=== PATIENT | female | born 1975 | race African-American/Black ===

== ENCOUNTER → 2016-06-24 | Outpatient (CLI) | payer BC ==
[~2016-06-24] MED LIST: ALBUTEROL17 G1 IH; ALBUTEROL17 GM INH; BACTRIM DS TABL1 TA1 PO; KEFLEX500 MG PO; ORUDIS75 M1 PO; PEPCID PO; PREDNISONE1 MG PO; PREDNISONE10 MG PO
--- NOTE | ~2016-06-24 | MY11 ---
[facility] A Service of [facility] RADIOLOGY TEXT RESULTS PATIENT: KONSTANTIN ARREDONDO LOCATION: [facility] : 71 UNIT #: [id number] AGE: [address]: Modesta Scherer SEX: F ORDER DR: [id number] [facility] [address] [place], [place] [address] [id number] O MR#: [id number] Acc #: [id number] NAME: KONSTANTIN ARREDONDO : 1975 SEX: F STUDY DATE/TIME: 06/24/2016 12:01 UNIT: [facility] ROOM: STUDY DESCRIPTION: MY Mammogram Screening Dig Harinder Attending Physician: Modesta Scherer P.A.-C. Ordering Physician: Physician Non-Staff Primary Care Physician: Modesta Scherer P.A.-C. MEDICAL IMAGING REPORT This report is preliminary unless electronic signature is present EXAM Digital screening mammogram 06/24/2016. [facility] HISTORY 40-year-old woman with a strong family history, mother premenopausal and grandmother. Prior bilateral breast reduction mammoplasties. Annual screening COMPARISON Mammograms date to 09/14/2004 with most recent comparison mammogram diagnostic 09/21/2013. Digital imaging of each breast was completed utilizing screening protocol. Review includes FDA-approved CAD device. The breast parenchyma is extremely dense with fibroglandular opacities and moderate fibronodularity in each breast. Numerous calcifications bilaterally have benign characteristics, many reflecting micro cystic mastopathy. I see no interval occurring mass. There are no suspicious microcalcifications and no architectural distortion. Given the parenchymal pattern and strong family history, consider adding breast tomosynthesis to this patient's annual screening protocol. This can be performed at the [facility] location. IMPRESSION Stable benign mammogram. See complete report with recommendations. Patients over the age of 40 are entered into a reminder system with target due date for the next mammogram. A result letter will also be sent to the patient. [facility] A Service of [facility] RADIOLOGY TEXT RESULTS PATIENT: KONSTANTIN ARREDONDO LOCATION: [facility] : 71 UNIT #: [id number] AGE: [address]: Modesta Scherer SEX: F ORDER DR: BIRADS: 2 - benign findings. Annual screening imperative. Dictated by... Jeff Morgan M.D. THIS IS AN ELECTRONICALLY VERIFIED REPORT Jeff Morgan M.D. at 06/24/2016 3:01 PM YANELI/romie TD: 06/24/2016 14:45 JOB #: [id number] MEDICAL IMAGING REPORT Page 1 of 1 COPY
== END | disposition home or self-care (01) ==
LOC: CWCC 11:22
DX: Z12.31 Encounter for screening mammogram for malignant neoplasm of breast (principal); Z80.3 Family history of malignant neoplasm of breast
CPT/HCPCS: G0202